=== PATIENT | male | born 1970 | race Caucasian/White ===

== ENCOUNTER → 2024-01-13 12:56 | Outpatient (REF) | payer BC, SELFPAY | LOC: HWRAD 12:56 | PROVIDERS: ATTENDING PHYSICIAN Family Medicine; FAMILY PHYSICIAN Family Medicine | DX: R05.3 Chronic cough (principal) | CPT/HCPCS: 71046 ==

== ENCOUNTER 2024-01-14 11:58 | Emergency (ER) | payer BC, SELFPAY ==
[2024-01-14 12:03] VITALS: BP 142/104
--- NOTE | 2024-01-14 12:29 | ED.GENMED ---
History of Present Illness
General
Chief Complaint: Cough
Time Seen by Provider: 01/14/24 12:20
Travel History
Have you had any contact with someone who has COVID-19?: No
Do you have any symptoms of coronavirus? Fever > 100 degrees, chills, cough, shortness of breath, sore throat, loss of taste or smell, muscle aches, or headache?: No
History of Present Illness
History of Present Illness:
53 yo male w/ hx of HTN and HLD presents to the Emergency Department for evaluation of persistent, dry cough x 3 mos. Had outpatient CXR yesterday that showed 'Nonspecific diffusely increased interstitial opacities within the right lung with
questionable bilateral hilar lymphadenopathy versus pulmonary artery enlargement. Findings may represent a nonspecific interstitial disease/fibrosis.' He notes that he has been treated w/ azithromycin and prednisone during this course of illness w/o
symptom improvement. Also has tried anti histamines. Works as an power system electrical engineer at [employer], no occupational exposure concerns. Does not own animals.
Past History
Past History
ED Past Medical History: HTN and Hypercholesterolemia
ED Past Surgical History: None
Social History
Tobacco: Non-smoker
Alcohol: None
Personal:
Living: with family
Review of Systems
Review of Systems
Allergies reviewed?: Yes
All Other Systems: ROS reviewed and negative except as documented in HPI and ROS
Phy Exam
Physical Exam
Physical Exam:
GEN: Well appearing, NAD, WDWN
HEENT: Oral mucosa moist, no scleral icterus
Cardiac: Regular rate and rhythm, no murmur
Lung: No respiratory distress, no tachypnea, lungs CTAB
MSK: No gross deformity or injuries
Skin: Good color, no pallor or jaundice, no rashes
Neuro: AO x3, moves all extremities freely
Psych: Calm, cooperative
Course
Orders/Labs/Results
Orders:
Orders
01/14/24 12:06
ECG [Electrocardiogram (*1)] Urgent
Reason for Study: Chest Pain
EKG- Treatment ONCE
01/14/24 12:29
CT Chest With Iv Contrast Urgent
Comment:
Reason For Exam: cough, abnormal CXR
01/14/24 12:44
Basic Metabolic Panel Urgent
Complete Blood Count/With Diff Urgent
Abnormal Lab Results
01/14/24
12:44
WBC 13.6 H 10^3/uL
(4.8-10.8)
Plt Count 412 H 10^3/uL
(130-400)
Abs Immat Gran (auto) 0.1 H 10^3/uL
(0-0.05)
Absolute Neuts (auto) 10.5 H 10^3/uL
(1.4-6.5)
Absolute Monos (auto) 1.0 H 10^3/uL
(0.1-0.6)
Neutrophils % 77.4 H %
(42.2-75.2)
Lymphocytes % 13.0 L %
(20.5-51.1)
Glucose 108 H mg/dl
(70-99)
01/14/24 12:44
01/14/24 12:44
Vital Signs
Initial and Last Documented VS:
Initial Vital Signs
Temp Pulse Resp BP Pulse Ox
98.2 F 90 18 142/104 95
01/14/24 12:03 01/14/24 12:03 01/14/24 12:03 01/14/24 12:03 01/14/24 12:03
Last Documented Vital Signs
Temp Pulse Resp BP Pulse Ox
98.2 F 90 18 142/104 95
01/14/24 12:03 01/14/24 12:03 01/14/24 12:03 01/14/24 12:03 01/14/24 12:03
MDM/Problems Addressed
MDM/Problems Addressed:
Etiology to the pt's symptoms remains unclear. Given the associated adenopathy and leukocytosis, will cover with doxycycline for potential infectious etiology. Certainly could be developing chronic pulmonary disease. Recommend close pulm outpt f/u
Comment
Comment:
Initial EKG independently interpreted by me shows NSR rate 83, no ST changes, QTc 441
*Critical Care Note
Total Time (30-74mins, 75-104mins- exclusive of procedures): Not Applicable
ED Attending Note
-
Portions of this chart may have been created with voice recognition software.� Occasional wrong word or��sound alike� substitutions may have occurred due to the inherent limitations of voice recognition software.
Discharge Plan
Departure
Patient Disposition: Home (Routine Discharge)
Date of Disposition: 01/14/24
Time of Disposition: 15:03
Patient with high blood pressure during this ER visit?: No
Discharge Problem:
Chronic cough, Abnormal chest CT
Instructions: Cough, Adult (DC)
Prescriptions:
New
doxycycline monohydrate 100 mg capsule
100 mg PO BID 7 Days Qty: 14 0RF
Discontinued
doxycycline hyclate 100 MG capsule
100 mg PO BID Qty: 20 0RF
prednisone 50 MG tablet
50 mg PO DAILY Qty: 5 0RF
Referrals:
Adela Vaz, [Active] -
Chet Argueta MD [Family Provider] -
Activity Restrictions/Additional Instructions:
Please follow up with pulmonology as soon as possible
We will try another course of antibiotics as the CT scan appearance is suspicious for infectious cause
Interventions
Interventions:
*Risk Screen - Suicide Last Done: 01/14/24 15:33
*General Assessment Last Done: 01/14/24 15:33
*Neglect/Abuse Screening Last Done: 01/14/24 15:33
*ED COVID-19 Vaccine History Last Done: 01/14/24 12:03
*Nursing Disposition Last Done: 01/14/24 15:33
ED- Pulmonary Assessment Last Done: 01/14/24 12:45
Discharge Date and Time
Discharge Date/Time: 01/14/24 15:34
Print Language: [id number]
[2024-01-14 12:45] VITALS: BMI 32.3
[2024-01-14 12:54] LABS: % Basophils 0.4 % (0-2); % Eosinophils 1.5 % (0-6); % Immature Granulocytes 0.5 % (0-0.5); % Monocytes 7.2 % (1.7-9.3); % Neutrophils 77.4 % (42.2-75.2); Absolute Basophils 0.1 10^3/uL (0-0.2); Absolute Eosinophils 0.2 10^3/uL (0-0.7); Absolute Immature Granulocytes 0.1 10^3/uL (0-0.05); Absolute Lymphocytes 1.8 10^3/uL (1.2-3.4); Absolute Neutrophils 10.5 10^3/uL (1.4-6.5); Hemoglobin 14.3 g/dL (13.0-18.0); Mean Corpuscular Hgb 29.7 pg (27.0-31.0); Mean Corpuscular Volume 87.3 fL (80.0-94.0); Mean Platelet Volume 8.8 fL (7.4-10.4); Nucleated Red Blood Cells % 0 % (-); Platelet Count 412 10^3/uL (130-400); Red Blood Cell Count 4.81 10^6/uL (4.70-6.10); Red Cell Dist. Width 11.9 % (11.5-14.5); White Blood Cell Count 13.6 10^3/uL (4.8-10.8)
[2024-01-14 13:09] LABS: Blood Urea Nitrogen 10 mg/dl (9-20); Calcium 9.5 mg/dl (8.4-10.2); Carbon Dioxide 26 mmol/L (22-30); Chloride 105 mmol/L (98-107); Estimated Creatinine Clearance > 125 ml/min; Glucose 108 mg/dl (70-99); Potassium 4.3 mmol/L (3.5-5.1); Sodium 139 mmol/L (135-145); eGFR > 60.00
== END 2024-01-14 15:34 | disposition home or self-care (01) ==
LOC: EMR 11:58
PROVIDERS: Physician Assistant; EMERGENCY PHYSICIAN Emergency Medicine; FAMILY PHYSICIAN Family Medicine
DX: R05.9 Cough, unspecified (principal); R91.8 Other nonspecific abnormal finding of lung field; I10 Essential (primary) hypertension; E78.00 Pure hypercholesterolemia, unspecified
CPT/HCPCS: 99285; 71260; 80048; 85025; 93005; Q9967

== ENCOUNTER → 2024-06-27 12:00 | Outpatient (REF) | payer BC, SELFPAY | LOC: DHSLP 12:00 | PROVIDERS: ATTENDING PHYSICIAN Internal Medicine Critical Care Medicine; FAMILY PHYSICIAN Family Medicine | DX: G47.33 Obstructive sleep apnea (adult) (pediatric) (principal) | CPT/HCPCS: 95800 ==